=== PATIENT | female | born 1960 | race Two or more races ===

== ENCOUNTER 2023-05-18 21:13 | Emergency (ER) | payer OTHER ==
[~2023-05-18] VITALS: Ht 165.1 cm; Wt 79.4 kg
[2023-05-19] MEDS ORDERED: cloNIDine HCL 0.2 MG TABLET PO STA (00:30)
[2023-05-19] MEDS ORDERED: KETOROLAC TROMETHAMINE 30 MG VIAL IV STA (00:30)
[2023-05-19 00:58] LABS: HEMATOCRIT 42.9 % (36.0-45.00); HEMOGLOBIN 14.6 g/dL (12.0-15.00); MEAN CELL VOLUME 99.7 fL (80.00-100.00); MEAN CORPUSCULAR HEMOGLOBIN 33.9 pg (27.00-32.0); PLATELET COUNT 206 K/uL (150-450); RED CELL DISTRIBUTION WIDTH 13.8 % (11.5-14.5)
[2023-05-19 01:46] LABS: CALCIUM 9.2 mg/dL (8.5-10.1); CREATININE SERUM 0.5 mg/dL (0.55-1.02); GFR 123.82; POTASSIUM 3.88 mEq/L (3.5-5.1)
== END 2023-05-19 04:06 | disposition home or self-care (01) ==
LOC: ER 21:13
DX: I10 Essential (primary) hypertension (principal); Z20.822 Contact with and (suspected) exposure to COVID-19
CPT/HCPCS: 36415; 96365; 99283; J1885